=== PATIENT | male | born 1990 | race African-American/Black ===

== ENCOUNTER 2020-11-30 22:56 | Emergency (ER) | payer MEDICAID ==
[~2020-11-30] VITALS: Ht 182.9 cm; Wt 106.0 kg
[2020-11-30] MEDS ORDERED: TETANUS, DIPHTHERIA, PERTUSSIS VAC/PF 0.5ML (>7YR OLD) IM ONE (23:30)
[2020-11-30] MEDS ORDERED: BACITRACIN ZINC OINT UDPKT TOP ONE (23:30)
[2020-11-30] MEDS ORDERED: ACETAMINOPHEN 325MG TABLET PO ONE (23:30)
[2020-12-01] MEDS ORDERED: ACET-2708 MT (00:09)
[2020-12-01 00:30] VITALS: BP 129/81
== END 2020-12-01 00:30 ==
LOC: ER 22:56
DX: S01.01XA Laceration without foreign body of scalp, initial encounter (principal); X58.XXXA Exposure to other specified factors, initial encounter; Y93.89 Activity, other specified; Y92.89 Other specified places as the place of occurrence of the external cause; Y99.8 Other external cause status
CPT/HCPCS: 12001; 90471; 90715; 99283; A4217; Z7610